=== PATIENT | male | born 1970 | race Caucasian/White ===

== ENCOUNTER 2018-04-23 06:39 | Day surgery (SDC) | payer OTHER ==
[2018-04-21 14:57] VITALS: BMI 25.0
[2018-04-23] MEDS ORDERED: PROPOFOL 20 ML ONE (07:06)
[2018-04-23] MEDS ORDERED: fentaNYL CITRATE 250 MCG/5 ML VIAL ONE (07:06)
[2018-04-23] MEDS ORDERED: SUCCINYLCHOLINE CHLORIDE 200 MG/10 ML VIAL ONE (07:06)
[2018-04-23] MEDS ORDERED: MIDAZOLAM HCL 2 MG/2 ML SINGLE DOSE VIAL ONE (07:06)
[2018-04-23] MEDS ORDERED: ROCURONIUM BROMIDE 50 MG/5 ML VIAL ONE (07:06)
[2018-04-23] MEDS ORDERED: LIDOCAINE HCL 2% 100 MG/5 ML DISP.SYRIN ONE (07:15)
[2018-04-23] MEDS ORDERED: DEXAMETHASONE SOD PHOSPHATE 4 MG/1 ML VIAL ONE (07:15)
[2018-04-23] MEDS ORDERED: PROMETHAZINE HCL 25 MG/1 ML VIAL IVPB PRN (08:02)
[2018-04-23] MEDS ORDERED: ONDANSETRON 4 MG/2 ML VIAL IVPUSH PRN (08:02)
[2018-04-23] MEDS ORDERED: oxyCODONE HCL 5 MG TABLET PO PRN (08:02)
[2018-04-23] MEDS ORDERED: LACTATED RINGERS SOLUTION 1,000 ML IV SCH (08:15)
[2018-04-23] MEDS ORDERED: NEOSTIGMINE METHYLSULFATE 0.5 MG/ML - 10 ML MDV ONE (08:28)
[2018-04-23] MEDS ORDERED: GLYCOPYRROLATE 0.2 MG/1 ML VIAL ONE (08:28)
--- NOTE | 2018-04-23 08:49 | OP ---
Operative Note - Note: Operative Date: 04/23/18 Pre-Operative Diagnosis: obstructive sleep apnea. chronic tonsillitis Operation: UPPP and tonsillectomy Post-Operative Diagnosis: Same as Pre-op Surgeon: Colin Astorga Anesthesiologist/WALLPAPER PRINTER HELPER: Santhosh Ruiz Anesthesia: General Specimens Removed: tonsils, soft palate, uvula Estimated Blood Loss (mls): 10 Blood Volume Replaced (mls): 0 Fluid Volume Replaced (mls): 700 Operative Report Dictated: Yes
--- NOTE | 2018-04-23 10:11 | OP ---
DATE OF OPERATION: 04/23/2018 PREOPERATIVE DIAGNOSIS: Obstructive sleep apnea and chronic tonsillitis. POSTOPERATIVE DIAGNOSIS: Obstructive sleep apnea and chronic tonsillitis. PRODEDURE: Uvulopalatopharyngoplasty and tonsillectomy. SURGEON: Colin Meraz MD ANESTHESIA: General endotracheal by Dr. Santhosh Griffin. INDICATIONS: The patient is a 47-year-old man with obstructive sleep apnea who requests throat surgery. Physical examination reveals a bulky uvula and soft palate along with enlarged tonsils. The nature and purpose of the proposed procedure as well as the risks, benefits, alternatives, and possible complications were discussed in detail with the patient, who appears to understand and wishes to proceed with surgery. All questions were answered, and an informed consent was given by the patient. PROCEDURE DESCRIPTION FOLLOWS: With the patient under general endotracheal anesthesia in the supine position, he was prepped and draped in the usual sterile fashion. The mouth was opened with a mouth gag keeping the tongue and endotracheal tube in the midline position, and the mouth gag was suspended on chest towels. Using a Coblation Evac 70 Wand on its default settings, both tonsils were dissected from their underlying tonsillar fossas and were connected with a rim of excess soft palate and uvular tissue. A mode-uvula was fashioned. The tonsils were noted to be discharging tonsil stones, confirming the presence of chronic tonsillitis. Hemostasis was achieved with the same instrument on coagulation default settings. Several loose 3-0 Vicryl sutures were placed to approximate the soft palate edges. When the patient awakened, he was extubated and discharged to the recovery room in satisfactory condition. There were no complications. The estimated blood loss was 10 mL. COLIN MERAZ M.D. [id number] MTDD
[2018-04-23] MEDS ORDERED: oxyCODONE HCL 5 MG TABLET ONE (11:14)
[2018-04-23] MEDS ORDERED: oxyCODONE HCL 5 MG TABLET PO ONE (11:15)
[2018-04-23 12:10] VITALS: BP 120/79; PULSE 76; TEMP 98.2
--- NOTE | 2018-04-26 16:20 | PATH ---
Surgical Pathology Report Patient Name: JALEN STOVER [facility]. Rec. #: [id number] /Age/Gender: 1970 (Age: 47) / M Account: [id number] Location: [facility] SURGICAL Taken: 04/23/2018 Received: 04/23/2018 Reported: 04/26/2018 Physicians: Colin Astorga Specimen(s) Received TONSIL AND UVULA TISSUE Clinical History Obstructive sleep apnea, chronic tonsillitis Final Diagnosis COMBINED TONSILS AND UVULA TISSUE, UVULOPALATOPHARYNGOPLASTY, TONSILLECTOMY: BENIGN TONSIL WITH REACTIVE LYMPHOID FOLLICULAR HYPERPLASIA. BENIGN UVULA WITH VASCULAR CONGESTION AND STROMAL EDEMA. Electronically Signed Mayda Nicole M.D. Gross Description Received in formalin labeled "combined tonsil and uvula tissue," are 2 house-pink, ovoid portions of soft tissue, consistent with tonsils. The tonsils measure 2.0 x 1.2 x 0.8 cm and 2.4 x 1.5 0.6 cm. The outer surfaces are house-pink and vary from smooth to cauterized. Sectioning reveals house-pink parenchyma with cryptic architecture. No discrete lesions are identified. Separately received within the same container is a 2.0 x 0.7 x 0.4 cm pink-house portion of soft tissue, consistent with a uvula. A call center representative section of each tonsil and the bisected uvula is submitted in one cassette. /04/23/201804/23/2018
== END 2018-04-23 12:05 | disposition home or self-care (01) ==
LOC: JASU-SURG 06:39
PROVIDERS: ATTEND Otolaryngology
PROC: 0CTPXZZ Resection of Tonsils, External Approach (ICD-10-PCS; principal; 2018-04-23 07:30)
PROC: 0CBN0ZZ Excision of Uvula, Open Approach (ICD-10-PCS; 2018-04-23 07:30)
DX: G47.33 Obstructive sleep apnea (adult) (pediatric) (principal); J35.01 Chronic tonsillitis
CPT/HCPCS: 88304-TC; 94760